=== PATIENT | female | born 1985 | race American Indian/Alaskan Native ===

== ENCOUNTER 2017-11-16 17:00 | Emergency (ER) | payer MEDICAID ==
[2017-11-16 17:10] VITALS: BP 116/83
--- NOTE | 2017-11-16 17:48 | Emergency Department Report ---
- General Chief complaint: Allergic Reaction Stated complaint: ALLERGIC REACTION Time Seen by Provider: 11/16/17 17:39 Source: patient Mode of arrival: Ambulatory Limitations: No Limitations - History of Present Illness Initial comments: Jasmin is a very pleasant 2-year-old female who presents with a facial rash. She recently started new medication propranolol and Depakote. She now has a papular flesh-colored rash. She states that her skin feels tight. Patient also recently finished amoxicillin for dental infection MD complaint: rash -: Gradual, days(s) (5) Location: face Severity: mild Quality: other ("tight") - Related Data Previous Rx's Medication Instructions Recorded Last Taken Type Ibuprofen [Motrin] 800 mg PO Q8HR PRN #15 tablet 10/13/15 Unknown Rx Hydrocortisone 1% [Hydrocortisone 1 applicatio TP TID 7 Days #1 tube 11/16/17 Unknown Rx 1% CREAM] Allergies Allergy/AdvReac Type Severity Reaction Status Date / Time Sulfa (Sulfonamide Allergy Rash Verified 10/13/15 00:23 Antibiotics) Abscess Boil HPI - HPI Chief Complaint: Allergic Reaction Stated Complaint: ALLERGIC REACTION Time Seen by Provider: 11/16/17 17:39 Home Medications: Previous Rx's Medication Instructions Recorded Last Taken Type Ibuprofen [Motrin] 800 mg PO Q8HR PRN #15 tablet 10/13/15 Unknown Rx Hydrocortisone 1% [Hydrocortisone 1 applicatio TP TID 7 Days #1 tube 11/16/17 Unknown Rx 1% CREAM] Allergies/Adverse Reactions: Allergies Allergy/AdvReac Type Severity Reaction Status Date / Time Sulfa (Sulfonamide Allergy Rash Verified 10/13/15 00:23 Antibiotics) ED Review of Systems ROS: Stated complaint: ALLERGIC REACTION Other details as noted in HPI Constitutional: denies: fever, malaise Respiratory: denies: cough, shortness of breath Cardiovascular: denies: chest pain Gastrointestinal: denies: abdominal pain ED Past Medical Hx - Past Medical History Previous Medical History?: Yes Hx Psychiatric Treatment: Yes (Bipolar, Manic depression, substance abuse) - Surgical History Past Surgical History?: Yes Hx Appendectomy: Yes Additional Surgical History: tubaligation - Social History Smoking Status: Current Every Day Smoker Substance Use Type: Alcohol, Cocaine, Tranquilizers, Methamphetamines - Medications Home Medications: Home Medications Medication Instructions Recorded Confirmed Last Taken Type Ibuprofen [Motrin] 800 mg PO Q8HR PRN #15 tablet 10/13/15 Unknown Rx Hydrocortisone 1% [Hydrocortisone 1 applicatio TP TID 7 Days #1 tube 11/16/17 Unknown Rx 1% CREAM] ED Physical Exam - General Limitations: No Limitations General appearance: alert, in no apparent distress - Head Head exam: Present: atraumatic, normocephalic - Eye Eye exam: Present: normal appearance - ENT ENT exam: Present: other (dental caries right lower ridge) - Neck Neck exam: Present: normal inspection. Absent: meningismus - Skin Skin exam: Present: other (flesh colored papular rash involving for head nose and cheeks) ED Course Vital Signs 11/16/17 17:04 Temperature 98.4 F Pulse Rate 62 Respiratory 20 Rate Blood Pressure 116/83 O2 Sat by Pulse 98 Oximetry ED Medical Decision Making - Medical Decision Making Facial rash possibly due to& including Depakote or amoxicillin. Advised her to stop taking Depakote. I prescribed hydrocortisone cream Critical care attestation.: If time is entered above; I have spent that time in minutes in the direct care of this critically ill patient, excluding procedure time. ED Disposition Clinical Impression: Drug-induced skin rash Disposition: DC-01 TO HOME OR SELFCARE Is pt being admited?: No Does the pt Need Aspirin: No Condition: Stable Instructions: Acute Rash (ED), Adverse Drug Reaction (ED) Additional Instructions: Please stop taking Depakote. It may be the cause of the rash. Prescriptions: Hydrocortisone 1% [Hydrocortisone 1% CREAM] 1 applicatio TP TID 7 Days #1 tube Time of Disposition: 17:48
== END 2017-11-16 18:07 | disposition home or self-care (01) ==
LOC: ED 17:00
DX: R21 Rash and other nonspecific skin eruption (principal); F31.9 Bipolar disorder, unspecified; F17.200 Nicotine dependence, unspecified, uncomplicated; F14.10 Cocaine abuse, uncomplicated; Z90.49 Acquired absence of other specified parts of digestive tract; Z88.2 Allergy status to sulfonamides; Z98.51 Tubal ligation status
CPT/HCPCS: 99282

== ENCOUNTER 2017-11-23 12:26 | Emergency (ER) | payer MEDICAID ==
--- NOTE | 2017-11-23 13:09 | Emergency Department Report ---
Chief Complaint: Allergic Reaction Stated Complaint: ALLERGIC REACTION Time Seen by Provider: 11/23/17 13:04 - HPI History of Present Illness: 32-year-old female presents to the emergency department with complaint of a rash that has been going on for the past few days but appears to be spreading. The patient is a voluntary admission at [facility]. She says that the rash started when she was on Depakote and so the facility switched her to Geodon and another medication. However the rash has started to worsen, so now they switched her to trazodone, and she has started to feel tremulous. She denies any fever, chest pain, shortness of breath, nausea, vomiting. She has been using some cortisone cream and some Benadryl without much relief. The rashes to the arms, chest, back and now she has started to notice some on the legs. - ROS Review of Systems: Positive for rash Negative for fever, nausea, vomiting - Exam Vital Signs: Vital Signs 11/23/17 12:38 Temperature 97.9 F Respiratory 18 Rate Blood Pressure 146/93 Physical Exam: Patient does have a rash and/or skin eruption to the chest, bilateral arms, abdomen, back. The rash is mostly generalized but there are some grouped areas. There is a combination of urticaria and some papules. MSE screening note: Focused history and physical exam performed. Due to findings the following was ordered: The patient will have a CBC and BMP. ED Disposition for MSE Condition: Stable Referrals: PRIMARY CARE, [Primary Care Provider] - 3-5 Days
[2017-11-23 13:22] LABS: Basophils % (Auto) 0.4 % (0.0-1.8); Eosinophils # (Auto) 0.7 K/mm3 (0.0-0.4); Eosinophils % (Auto) 11.3 % (0.0-4.3); Hematocrit 36.9 % (30.3-42.9); Hemoglobin 12.9 gm/dl (10.1-14.3); Lymphocytes # (Auto) 1.8 K/mm3 (1.2-5.4); Lymphocytes % (Auto) 28.9 % (13.4-35.0); Mean Corpuscular HGB Conc 35 % (30-34); Mean Corpuscular Hemoglobin 32 pg (28-32); Mean Corpuscular Volume 91 fl (79-97); Monocytes # (Auto) 0.5 K/mm3 (0.0-0.8); Monocytes % (Auto) 7.4 % (0.0-7.3); Platelet Count 255 K/mm3 (140-440); Red Blood Count 4.07 M/mm3 (3.65-5.03); Red Cell Distribution Width 13.7 % (13.2-15.2)
[2017-11-23 13:39] LABS: BUN/Creatinine Ratio 21; Blood Urea Nitrogen 15 mg/dL (7-17); Calcium 9.1 mg/dL (8.4-10.2); Hemolysis Index 6
--- NOTE | 2017-11-23 15:06 | Emergency Department Report ---
ED Rash HPI - HPI Chief Complaint: Allergic Reaction Stated Complaint: ALLERGIC REACTION Time Seen by Provider: 11/23/17 13:04 Duration: 3 Days Location: Chest, Upper Extremities, Lower Extremities Suspected Cause: Medication Rash Symptoms: Yes Itching, Yes Blistering, No Facial Swelling, No Tongue/Oral Swelling, No Breathing Difficulties, No Choking Sensation, No Wheezing/Dyspnea, No Peeling, No Fever, No Lightheaded, No Malaise, No Myalgias Severity: mild Other History: 32-year-old female presents to the emergency department with complaint of a rash that has been going on for the past few days but appears to be spreading. The patient is a voluntary admission at [facility]. She says that the rash started when she was on Depakote and so the facility switched her to Geodon and another medication. However the rash has started to worsen, they switched her to trazodone, and she has started to feel tremulous. They discontinued trazodone and started her on zyprexa and benadryl. She denies any fever, chest pain, shortness of breath, nausea, vomiting. She has been using some cortisone cream and some Benadryl without much relief. The rashes to the arms, chest, back and now she has started to notice some on the legs. ED Review of Systems ROS: Stated complaint: ALLERGIC REACTION Other details as noted in HPI Constitutional: denies: chills, fever Respiratory: denies: cough, shortness of breath, wheezing Cardiovascular: denies: chest pain, palpitations Gastrointestinal: denies: abdominal pain, nausea, vomiting, diarrhea Skin: lesions (generalized rash). denies: rash Neurological: denies: headache, weakness, numbness, paresthesias Psychiatric: denies: anxiety, depression ED Past Medical Hx - Past Medical History Hx Psychiatric Treatment: Yes (Bipolar, Manic depression, substance abuse) - Surgical History Hx Appendectomy: Yes Additional Surgical History: tubaligation - Social History Smoking Status: Current Every Day Smoker Substance Use Type: None - Medications Home Medications: Home Medications Medication Instructions Recorded Confirmed Last Taken Type Ibuprofen [Motrin] 800 mg PO Q8HR PRN #15 tablet 10/13/15 Unknown Rx Hydrocortisone 1% [Hydrocortisone 1 applicatio TP TID 7 Days #1 tube 11/16/17 Unknown Rx 1% CREAM] Cephalexin [Keflex] 500 mg PO Q12HR #14 cap 11/23/17 Unknown Rx Prednisone [predniSONE 5 mg (6-Day 5 mg PO .TAPER #1 tab.ds.pk 11/23/17 Unknown Rx Pack, 21 Tabs)] Rash Exam - Exam General: Vital signs noted. No distress. Alert and acting appropriately. HEENT: No Periorbital Edema, No Conjuctival Injection, No Chemosis, No Perioral Edema, No Tongue Edema, No Uvular Edema, No Compromised Airway, No Drooling Lungs: Yes Good Air Exchange (Normal Breath Sounds), No Wheezes, No Ronchi, No Stridor, No Cough, No Labored Respirations, No Retractions, No Use of Accessory Muscles, No Other Abnormal Lung Sounds Heart: Yes Regular, No Murmur Skin: Yes Maculopapular Rash (anterior and posterior trunk, BUE, and BLE from groin to knee), Yes Morbilliform rash, Yes Erythema, No Urticarial Rash, No Bulla(e), No Excoriations, No Weeping, No Tenderness, No Edema, No Encrustations ED Course Vital Signs 11/23/17 12:38 Temperature 97.9 F Respiratory 18 Rate Blood Pressure 146/93 ED Medical Decision Making - Lab Data Result diagrams: 11/23/17 13:10 11/23/17 13:10 - Medical Decision Making This is a 32 y.o. female that presents with maculopapular rash to anterior and posterior trunk, BUE, and thighs. Patient is stable and was examined by me. No distress noted. Vitals are normal. Obtain CBC and BMP are both unremarkable. Start Keflex 500 mg by mouth twice a day 7 days and prednisone taper. Instructed to continue Benadryl. Follow up with [facility] with management psych medication. Review plan with patient and she agrees with plan. No further questions noted by the patient. Discharged home in stable condition. Follow up with PCP in 24-72 hours. Critical care attestation.: If time is entered above; I have spent that time in minutes in the direct care of this critically ill patient, excluding procedure time. ED Disposition Clinical Impression: Maculopapular rash, generalized Allergic reaction caused by a drug Qualifiers: Encounter type: initial encounter Qualified Code(s): T78.40XA - Allergy, unspecified, initial encounter Disposition: TO HOME OR SELFCARE Is pt being admited?: No Does the pt Need Aspirin: No Condition: Stable Instructions: Urticaria (ED) Additional Instructions: Complete full course of antibiotics as prescribed. Take Benadryl twice today as needed for itching. Follow up with primary care provider in 24-72 hours. Return to ER if short of breath, tongue swelling, chest pain, or symptoms are not improving as discussed. Prescriptions: Cephalexin [Keflex] 500 mg PO Q12HR #14 cap Prednisone [predniSONE 5 mg (6-Day Pack, 21 Tabs)] 5 mg PO .TAPER #1 tab.ds.pk Referrals: [facility] [Outside] - 3-5 Days [facility] [Outside] - 3-5 Days [facility] [Outside] - 3-5 Days Time of Disposition: 15:26 Print Language: OMANI
[2017-11-23 15:35] VITALS: BP 128/68
== END 2017-11-23 15:35 | disposition home or self-care (01) ==
LOC: ED 12:26
DX: T43.215A Adverse effect of selective serotonin and norepinephrine reuptake inhibitors, initial encounter (principal); F17.200 Nicotine dependence, unspecified, uncomplicated; Y92.89 Other specified places as the place of occurrence of the external cause
CPT/HCPCS: 36415; 80048; 85025; 99283